=== PATIENT | male | born 1970 | race Two or more races ===

== ENCOUNTER 2020-12-31 13:25 | Emergency (ER) | payer MEDICAID ==
[~2020-12-31] VITALS: Ht 172.7 cm; Wt 86.4 kg
[2020-12-31] MEDS ORDERED: SULF-261 PO (13:27)
[2020-12-31] MEDS ORDERED: LEVO750T68 PO (13:27)
[2020-12-31] MEDS ORDERED: METF-1211 PO (13:27)
[2020-12-31] MEDS: BACITRACIN 0.9 GM PACKET OINTMENT TP ONE (14:36)
[2020-12-31 15:38] VITALS: BP 161/91
== END 2020-12-31 15:56 | disposition home or self-care (01) ==
LOC: EDBD 13:28 → EMS 13:28
DX: E11.621 Type 2 diabetes mellitus with foot ulcer (principal)
CPT/HCPCS: 99282; Z7502; Z7610

== ENCOUNTER 2021-02-24 12:59 | Emergency (ER) | payer MEDICAID ==
[~2021-02-24] VITALS: Ht 172.7 cm; Wt 90.9 kg
[~2021-02-24 12:59] MED LIST: LEVO750T68 PO; METF-1211 PO; SULF-261 PO
[2021-02-24 14:23] LABS: BASOPHILS % (AUTO) 0.8 % (0.0-2.0); EOSINOPHILS % (AUTO) 3.2 % (1.0-6.0); HEMATOCRIT 40.9 % (41-53); LYMPHOCYTES # (AUTO) 2.3 K/uL (1.0-4.8); LYMPHOCYTES % (AUTO) 29.7 % (22.0-44.0); MEAN CORPUSCULAR HEMOGLOBIN 28.9 pg (26.0-34.0); MEAN CORPUSCULAR HGB CONC 34.3 G/dL (31.0-37.0); MEAN CORPUSCULAR VOLUME 84 fL (80-100); MONOCYTES # (AUTO) 0.6 K/uL (0.1-1.0); MONOCYTES % (AUTO) 7.1 % (2.0-9.0); NEUTROPHILS # (AUTO) 4.6 K/uL (1.8-7.7); NEUTROPHILS % (AUTO) 59.2 % (40.0-70.0); PLATELET COUNT (AUTO) 189 K/uL (150-450); RED BLOOD CELL COUNT(AUTO) 4.86 MIL/uL (4.50-5.90); RED CELL DISTRIBUTION WIDTH 14.9 % (11.5-14.5)
[2021-02-24 14:31] LABS: ANION GAP 5 mmol/L (8-16); CALCIUM, TOTAL 9.7 mg/dL (8.8-10.5); CARBON DIOXIDE 30 mmol/L (22-29); CHLORIDE 104 mmol/L (98-107); CREATININE 0.72 mg/dL (0.60-1.30); GLOMERULAR FILTR. RATE CALC > 60 mL/min (>60); GLUCOSE,RANDOM 130 mg/dL (70-110); POTASSIUM 4.4 mmol/L (3.5-5.1); SODIUM SERUM 139 mmol/L (136-145); UREA NITROGEN, BLOOD 12 mg/dL (7-18)
[2021-02-24 14:35] LABS: C-REACTIVE PROTEIN QUANT 0.34 mg/dL (0.00-0.30)
[2021-02-24 15:28] LABS: ERYTHROCYTE SEDIMENTATION RATE 15 MM/HR (0-15)
[2021-02-24] MEDS ORDERED: GABAPENTIN 100 MG CAPSULE PO ONE (15:45)
[2021-02-24] MEDS ORDERED: ACETAMINOPHEN 325 MG TABLET PO ONE (15:45)
[2021-02-24 16:07] VITALS: BP 149/76
== END 2021-02-24 16:14 | disposition home or self-care (01) ==
LOC: EMS 13:39
DX: E11.621 Type 2 diabetes mellitus with foot ulcer (principal); L03.116 Cellulitis of left lower limb; I10 Essential (primary) hypertension; Z79.84 Long term (current) use of oral hypoglycemic drugs
CPT/HCPCS: 80048; 85025; 85651; 86140; 99284

== ENCOUNTER 2022-05-30 12:24 | Emergency (ER) | payer MEDICAID, OTHER ==
[~2022-05-30] VITALS: Ht 167.6 cm; Wt 72.7 kg
[2022-05-30] MEDS ORDERED: KETOROLAC TROMETHAMINE 30 MG/ML VIAL IM ONE (13:45)
[2022-05-30] MEDS ORDERED: IBUP-1492 PO (16:33)
[2022-05-30 17:20] VITALS: BP 117/74
== END 2022-05-30 17:22 | disposition home or self-care (01) ==
LOC: EMS 12:32
DX: M25.562 Pain in left knee (principal); E11.9 Type 2 diabetes mellitus without complications; I10 Essential (primary) hypertension
CPT/HCPCS: 99283; 73562; 96372; J1885